=== PATIENT | female | born 1995 | race Caucasian/White ===

== ENCOUNTER 2017-01-11 17:34 | Emergency (ER) | payer BC, OTHER ==
[~2017-01-11] VITALS: Ht 162.6 cm; Wt 61.0 kg
[2017-01-11 17:43] VITALS: TEMP 36.9; Ht 162.6 cm; Wt 61.0 kg
[2017-01-11] MEDS ORDERED: CEFTRIAXONE SOD INJ 1 GM ADDVIAL IV STA (18:00)
--- NOTE | 2017-01-11 18:07 | EMERGENCY ROOM VISIT NOTE ---
History Report prepared by Emily: Aniyah Uriostegui Under the Supervision of: Dr. Danis Morales M.D. First contact with patient: 17:48 Chief Complaint: OTHER COMPLAINT Stated Complaint: VAGINAL BOILS History of Present Illness The patient is a 21 year old female who presents to the Emergency Room with complaints of persistent vaginal bumps starting 1 month ago. The patient was sent from [facility]. She first noticed that she had a bump 1 month ago. The bump began to drain itself after 3 days. She went to [facility] and was started on Keflex. She had improvement and the bump seemed to resolve. Over the past week, she has developed 2-3 more bumps in a different area. She went to see a doctor last week and was started on Bactrim. She has been on Bactrim for 6 days now. She is not experiencing any improvement. She has never had these bumps before. Last night, she woke up in the middle of the night with chills. This morning she had some fever and diaphoresis. She has been taking ibuprofen. The bumps have been slightly painful. She denies any vaginal discharge, diarrhea , or urinary symptoms. She does shave her pubic area. She has a history of asthma. She has never had vaginal or oral sex. Source of History: patient Onset: 1 month ago Position: other (vaginal) Symptom Intensity: 2-3 Quality: other (bumps) Timing: other (persistent) Associated Symptoms: + fevers, + chills, + diaphoresis, No diarrhea, No urinary symptoms Note: Pt denies vaginal discharge. Review of Systems See HPI for pertinent positives & negatives. A total of 10 systems reviewed and were otherwise negative. Past Medical & Surgical Medical Problems: (1) Asthma Family History No pertinent family history stated. Social History Smoking Status: Never Smoker Occupation Status: [employer] student Current/Historical Medications Scheduled Amitriptyline HCl (Amitriptyline HCl), 30 MG PO DAILY Budesonide/Formoterol Fumarate (Symbicort 160/4.5 Inhaler ), 2 PUFFS INH BID Cefdinir (Omnicef), 300 MG PO Q12H Fluticasone Propionate (Nasal) (Flonase Allergy Relief), 2 PUFFS NA DAILY Montelukast Sodium (Singulair), 10 MG PO HS Valacyclovir (Valtrex), 500 MG PO BID Allergies Coded Allergies: Amoxicillin (Unverified Allergy, Intermediate, STOMACH PAIN, 01/11/17) Physical Exam Vital Signs Date Time Temp Pulse Resp B/P (MAP) Pulse Ox O2 Delivery O2 Flow Rate FiO2 01/11/17 19:17 89 16 114/76 100 01/11/17 17:43 36.9 95 16 121/83 99 Room Air Physical Exam GENERAL: Patient is in no acute distress. HEENT: No acute trauma, normocephalic atraumatic, mucous membranes moist, no nasal congestion, no scleral icterus. NECK: No stridor, no adenopathy, no meningismus, trachea is midline. LUNGS: Clear to auscultation bilaterally, no wheeze, no rhonchi, breath sounds equal. HEART: Without murmurs gallops or rubs, regular rate and rhythm. ABDOMEN: Soft, nontender, bowel sounds positive, no hernias, no peritonitis. GROIN: Patient has an area of previous drainage to the right portion of the mons. There is some subtle surrounding cellulitis with what appears to be folliculitis. No drainable abscess noted. No tenderness to palpation. EXTREMITIES: No cyanosis or edema, full range of motion of all the joints without pain or difficulty, no signs for acute trauma. NEUROLOGIC: Oriented x 3, no acute motor or sensory deficits, no focal weakness. SKIN: No rash, no jaundice, no diaphoresis. Medical Decision & Procedures Laboratory Results 01/11/17 18:05 Red Blood Count 4.44, Mean Corpuscular Volume 86.3, Mean Corpuscular Hemoglobin 28.2, Mean Corpuscular Hemoglobin Concent 32.6, Mean Platelet Volume 9.1, Neutrophils (%) (Auto) 40.8, Lymphocytes (%) (Auto) 27.9, Monocytes (%) (Auto) 21.6, Eosinophils (%) (Auto) 8.6, Basophils (%) (Auto) 0.7, Neutrophils # (Auto ) 1.10, Lymphocytes # (Auto) 0.75, Monocytes # (Auto) 0.58, Eosinophils # (Auto ) 0.23, Basophils # (Auto) 0.02 01/11/17 18:05 Test 01/11/17 18:05 White Blood Count 2.50 K/uL (4.8-10.8) Red Blood Count 4.44 M/uL (4.2-5.4) Hemoglobin 12.5 g/dL (12.0-16.0) Hematocrit 38.3 % (37-47) Mean Corpuscular Volume 86.3 fL (80-100) Mean Corpuscular Hemoglobin 28.2 pg (25-34) Mean Corpuscular Hemoglobin Concent 32.6 g/dl (32-36) Platelet Count 174 K/uL (130-400) Mean Platelet Volume 9.1 fL (7.4-10.4) Neutrophils (%) (Auto) 40.8 % Lymphocytes (%) (Auto) 27.9 % Monocytes (%) (Auto) 21.6 % Eosinophils (%) (Auto) 8.6 % Basophils (%) (Auto) 0.7 % Neutrophils # (Auto) 1.10 K/uL (1.4-6.5) Lymphocytes # (Auto) 0.75 K/uL (1.2-3.4) Monocytes # (Auto) 0.58 K/uL (0.11-0.59) Eosinophils # (Auto) 0.23 K/uL (0-0.5) Basophils # (Auto) 0.02 K/uL (0-0.2) RDW Standard Deviation 43.0 fL (36.4-46.3) RDW Coefficient of Variation 13.5 % (11.5-14.5) Immature Granulocyte % (Auto) 0.4 % Immature Granulocyte # (Auto) 0.01 K/uL (0.00-0.02) Nucleated RBC Absolute Count (auto) 0.00 K/uL (0-0) Nucleated Red Blood Cells % 0.0 % Anion Gap 5.0 mmol/L (3-11) Est Creatinine Clear Calc Drug Dose 82.3 ml/min Estimated GFR () 100.6 Estimated GFR (Non- 86.8 BUN/Creatinine Ratio 12.9 (10-20) Calcium Level 8.4 mg/dl (8.5-10.1) Laboratory results reviewed by me. Medications Administered Medications (Trade) Dose Ordered Sig/Kathya Route Start Time Stop Time Status Last Admin Dose Admin Ceftriaxone Sodium (Rocephin Inj) 1 gm NOW STAT IV 01/11/17 18:00 01/11/17 18:04 DC 01/11/17 18:22 1 GM Valacyclovir HCl (Valtrex Tab) 500 mg NOW ONCE PO 01/11/17 19:00 01/11/17 19:01 DC 01/11/17 19:15 500 MG ED Course 1749: The patient was evaluated in room C7. A complete history and physical exam was performed. A pelvic exam was performed in the presence of a female nurse branch controller. 1800: Rocephin Inj 1 gm IV. 1840: I discussed the patient's case [facility]. She recommends the patient be started on a different antibiotic and an antiviral. She will follow up in the office. 1850: I reevaluated the patient. I discussed results and discharge instructions : She verbalized understanding and agreement. The patient is ready for discharge. 0: Valtrex Tab 500 mg PO. 1900: I spoke with the patient's mother on the phone. I updated her on the results and treatment plan. Medical Decision Differential diagnoses considered include folliculitis, cellulitis, abscess, herpes infection, failed outpatient treatment, resistant bacterial infection. There is no leukocytosis, in fact, the white count is low-this could suggest a viral infection or possibly, the white count suppression could be from the Bactrim use. There is no anemia. No significant electrolyte abnormality or kidney failure. A culture of the area of concern was ordered and is pending. . The patient was given IV ceftriaxone and oral Valtrex. I discussed her case with OB. The patient will be seen in the office in a few days for follow-up. She is being discharged on Omnicef twice a day for 10 days, she will be using Valtrex twice a day for 5 days. She will watch for worsening of the infection. She was happy with the plan. I discussed things with the patient, I discussed things with the mother by phone. The patient appears to have a folliculitis which has become a cellulitis, I do think a herpetic infection is also a possibility. Consults Time Called: 1840 Consulting Physician: Dr. Brand[place] [facility] [place] Returned Call: 1840 I discussed the patient's case with her. She recommends the patient be started on a different antibiotic and an antiviral. She will follow up in the office. Impression Primary Impression: Cellulitis Scribe Attestation The scribe's documentation has been prepared under my direction and personally reviewed by me in its entirety. I confirm that the note above accurately reflects all work, treatment, procedures, and medical decision making performed by me. Departure Information Dispostion Home / Self-Care Prescriptions Cefdinir (OMNICEF) 300 Mg Cap 300 MG PO Q12H for 10 Days, #20 CAP Prov: Danis Morales M.D. 01/11/17 Valacyclovir (Valtrex) 500 Mg Tab 500 MG PO BID for 5 Days, #10 TAB Prov: Danis Morales M.D. 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
[2017-01-11 18:18] LABS: HEMATOCRIT 38.3 % (37-47); MEAN CELL VOLUME 86.3 fL (80-100); MEAN CORPUSCULAR HEMOGLOBIN 28.2 pg (25-34); MEAN CORPUSCULAR HGB CONC 32.6 g/dl (32-36); MEAN PLATELET VOLUME 9.1 fL (7.4-10.4); PLATELET COUNT 174 K/uL (130-400); RED BLOOD COUNT 4.44 M/uL (4.2-5.4)
[2017-01-11 18:38] LABS: BUN/CREATININE RATIO 12.9 (10-20); CALCIUM 8.4 mg/dl (8.5-10.1); CREATININE 0.95 mg/dl (0.60-1.20); POTASSIUM 3.7 mmol/L (3.5-5.1)
[2017-01-11 18:42] LABS: BASO % 0.7 %; BASO ABS # 0.02 K/uL (0-0.2); COMPLETE YES; EOS % 8.6 %; IG% 0.4 %; LYMPH % 27.9 %; LYMPH ABS # 0.75 K/uL (1.2-3.4); MONO % 21.6 %; NEUT % 40.8 %
[2017-01-11] MEDS ORDERED: MONT1TAB3 PO (18:43)
[2017-01-11] MEDS ORDERED: SYMIN160 INH (18:43)
[2017-01-11] MEDS ORDERED: FLUT0.15 (18:44)
[2017-01-11] MEDS ORDERED: AMT10 PO (18:44)
[2017-01-11] MEDS ORDERED: CEFD300C2 PO (18:57)
[2017-01-11] MEDS ORDERED: VALA500T60 PO (18:57)
[2017-01-11 19:17] VITALS: BP 114/76; PULSE 89; O2SAT 100
== END 2017-01-11 19:18 | disposition home or self-care (01) ==
LOC: C.EDB 17:36 → C.EDC 19:18
DX: N76.4 Abscess of vulva (principal); J45.909 Unspecified asthma, uncomplicated; Z79.51 Long term (current) use of inhaled steroids